=== PATIENT | male | born 1985 | race Caucasian/White ===

== ENCOUNTER → 2020-03-22 | Emergency (ER) | payer BC ==
[~2020-03-22] VITALS: Ht 182.9 cm; Wt 68.2 kg
[~2020-03-22] MED LIST: CEPHALEXIN500 M1 PO; HUMIRA40 MG/0.1 SC; HUMIRA40 MG/0.4 SQ; NO HOME MEDICATIONS; NORCO 325 MG-51 TAB PO; PEPCID 20MG TAB20 MG PO; PRILOSEC 20MG20 MG PO; ZOFRAN ODT4 MG PO
[2020-03-22 06:10] VITALS: PULSE 85; TEMP 97.7
[2020-03-22 06:37] LABS: COLLECTION METHOD CLEAN CATCH
[2020-03-22 06:43] LABS: MUCOUS Present /lpf; PH 5 (5-8); SQUAMOUS EPITHELIAL None Seen /hpf; URINE APPEARANCE Clear; URINE BACTERIA None Seen /hpf; URINE BILIRUBIN Negative (NEGATIVE); URINE BLOOD 3+ (NEGATIVE); URINE COLOR Yellow; URINE GLUCOSE Negative (NEGATIVE); URINE KETONE Negative (NEGATIVE); URINE LEUKOCYTE ESTERASE Negative (NEGATIVE); URINE NITRATE Negative (NEGATIVE); URINE PROTEIN(semi-quant) Negative (NEGATIVE); URINE RBC >50 /hpf; URINE UROBILINOGEN Negative (NEGATIVE)
[2020-03-22 06:43] LABS: BASO # 0.1 (0.0-0.2); BASO % 0.8 % (0.0-2.0); EOS # 0.3 (0.0-0.7); EOS % 3.3 % (0-4.0); GRAN # 3.7 (1.4-6.5); GRAN % 48.2 % (42.2-75.2); HEMOGLOBIN 14.3 g/dl (13.5-18.0); LYMPH # 3.1 (1.2-3.4); LYMPH % 40.9 % (20.0-51.0); MEAN CELL VOLUME 90 fl (80.0-100.0); MEAN CORPUSCULAR HEMOGLOBIN 32 pg (27.0-31.0); MEAN CORPUSCULAR HGB CONC 35 g/dl (33.0-37.0); MEAN PLATELET VOLUME 9.8 fl (7.4-10.4); MONO # 0.5 (0.1-0.6); MONO % 6.1 % (1.7-9.3); PLATELET COUNT 280 K/mm3 (130-400); RED BLOOD COUNT 4.54 M/mm3 (4.20-5.60); REDCELL DISTRIBUTION WIDTH-CV 11.8 % (11.5-14.5)
[2020-03-22 06:47] LABS: ALBUMIN 4.5 gm/dL (3.5-5.0); BILIRUBIN,TOTAL 0.7 mg/dL (0.0-1.0); CALCIUM 9.4 mg/dL (8.4-10.2); CREATININE, serum 0.87 (0.66-1.25); POTASSIUM 3.2 mmol/L (3.4-5.0); TOTAL PROTEIN 7.8 gm/dL (6.4-8.2)
[2020-03-22 08:05] VITALS: BP 109/71
== END ==
LOC: COL.ER 06:05
PROVIDERS: Emergency Medicine
DX: N20.1 Calculus of ureter (principal); M06.9 Rheumatoid arthritis, unspecified
CPT/HCPCS: J1885; J2270; J2405; J7030